=== PATIENT | female | born 1990 ===

== ENCOUNTER 2022-04-10 23:26 | Emergency (ER) | payer OTHER ==
[2022-04-10 23:35] VITALS: BP 139/95; PULSE 75; RESP 16; TEMP 99.6; BMI 30.4
[2022-04-11 01:31] LABS: HEMATOCRIT 38.4 % (32.4-45.2); HEMOGLOBIN 12.8 GM/dL (10.7-15.3); MCH 29.5 pg (25.7-33.7); MCHC 33.2 g/dl (32.0-36.0); MEAN CELL VOLUME 88.8 fl (80-96); MEAN PLT VOLUME 9.8 fl (7.5-11.1); PLATELET COUNT 254 10^3/uL (134-434); RBC 4.33 M/mm3 (3.60-5.2); RDW 13.4 % (11.6-15.6); WHITE BLOOD COUNT 8.7 K/mm3 (4.0-10.0)
[2022-04-11 03:02] LABS: CALCIUM 8.8 mg/dL (8.5-10.1)
[2022-04-11 03:03] LABS: ALBUMIN 3.5 g/dl (3.4-5.0); BLOOD UREA NITROGEN 6.5 mg/dL (7-18)
[2022-04-11 03:06] LABS: CREATININE 0.6 mg/dL (0.55-1.3)
[2022-04-11 03:07] LABS: BILIRUBIN,TOTAL 0.2 mg/dL (0.2-1)
[2022-04-11 03:08] LABS: TOT PROT 7.3 g/dl (6.4-8.2)
== END 2022-04-11 03:10 | disposition home or self-care (01) ==
LOC: FER 23:26
DX: K11.20 Sialoadenitis, unspecified (principal)
CPT/HCPCS: 36415; 70491-TC; 80053; 85027; 99285-25; Q9967